=== PATIENT | female | born 1955 | race Caucasian/White ===

== ENCOUNTER 2017-04-29 23:53 | Emergency (ER) | payer OTHER ==
[2017-04-30 00:12] VITALS: BP 147/75
== END 2017-04-30 02:32 | disposition left against medical advice (07) ==
LOC: ER 23:53
DX: Z53.21 Procedure and treatment not carried out due to patient leaving prior to being seen by health care provider (principal)

== ENCOUNTER → 2019-06-11 | Outpatient (CLI) | payer OTHER ==
--- NOTE | 2019-06-11 11:56 | RADIOLOGY REPORT (SQ) ---
EXAM DESCRIPTION: CHEST PA/LATERAL COMPLETED DATE/TIME: 06/11/2019 11:20 am REASON FOR STUDY: COUGH COMPARISON: None. EXAM PARAMETERS: NUMBER OF VIEWS: two views TECHNIQUE: Digital Frontal and Lateral radiographic views of the chest acquired. RADIATION DOSE: NA LIMITATIONS: none FINDINGS: LUNGS AND PLEURA: No consolidation or effusions. Focal opacity at the left cardiophrenic angle is consistent with confluence of shadows. No effusions. No pneumothorax. MEDIASTINUM AND HILAR STRUCTURES: No masses or contour abnormalities. HEART AND VASCULAR STRUCTURES: Heart normal size. No evidence for failure. BONES: No acute findings. HARDWARE: None in the chest. OTHER: No other significant finding. IMPRESSION: NO SIGNIFICANT RADIOGRAPHIC FINDING IN THE CHEST. TECHNICAL DOCUMENTATION: JOB ID: [id number] [employer]- All Rights Reserved Reading location - IP/workstation name: [email or web address]
== END ==
LOC: OD 11:07
PROVIDERS: ATTEND Physician Assistant
DX: R05 Cough (principal)
CPT/HCPCS: 71046

== ENCOUNTER → 2019-07-12 | Outpatient (CLI) | payer OTHER ==
--- NOTE | 2019-07-12 14:12 | RADIOLOGY REPORT (SQ) ---
EXAM DESCRIPTION: CT SOFT TISSUE NECK WITH COMPLETED DATE/TIME: 07/12/2019 1:29 pm REASON FOR STUDY: R22.0 LOCALIZED SWELLING, MASS AND LUMP, HEAD R22.0 LOCALIZED SWELLING, MASS AND LUMP, HEAD COMPARISON: None. TECHNIQUE: Post IV contrasted scanning from skull base through lung apices with review of bone, soft tissue and lung windows. Reconstructed coronal and sagittal MPR images reviewed. All images stored on PACS. All CT scanners at this facility use dose modulation, iterative reconstruction, and/or weight based d osing when appropriate to reduce radiation dose to as low as reasonably achievable (ALARA). [facility]: Dose Right [facility]: CareDose [facility]: Dose Right [facility]: Teradose 4D [facility]: Mo-DV CONTRAST TYPE AND DOSE: contrast/concentration: Isovue 350.00 mg/ml; Total Contrast Delivered: 75.0 ml; Total Saline Delivered: 55.0 ml RENAL FUNCTION: Creatinine 0.7 RADIATION DOSE: . LIMITATIONS: Lack of marker. FINDINGS: SKULL BASE: Intact. MAJOR SALIVARY GLANDS: No solid or cystic masses. No inflammatory changes. LYMPHADENOPATHY: There are small submandibular and submental and cervical lymph nodes bilaterally. MUCOSAL MASSES OR ASYMMETRY: No mucosal masses or asymmetry. LARYNX/CORDS: No abnormal findings. VASCULAR STRUCTURES: The major vessels are patent. LUNG APICES: Clear. BONES: Cervical degenerative disc disease and spondylosis. THYROID: Normal size. No masses. PARANASAL SINUSES: Clear. OTHER: No other significant finding. IMPRESSION: There is mild adenopathy bilaterally as described. Degenerative disc disease and spondy losis are present. No abnormal soft tissue mass is seen. TECHNICAL DOCUMENTATION: JOB ID: [id number] Quality ID # 436: Final reports with documentation of one or more dose reduction techniques (e.g., Au tomated exposure control, adjustment of the mA and/or kV according to patient size, use of iterative reconstruction technique) 2010 [facility]- All Rights Reserved Reading location - IP/workstation name: [email or web address]
== END ==
LOC: RAD 12:48
PROVIDERS: ATTEND Physician Assistant
DX: R22.0 Localized swelling, mass and lump, head (principal)
CPT/HCPCS: 70491; 82565

== ENCOUNTER → 2019-12-01 | Outpatient (CLI) | payer OTHER ==
--- NOTE | 2019-12-01 08:53 | RADIOLOGY REPORT (SQ) ---
EXAM DESCRIPTION: CT LUNG CANCER SCREENING COMPLETED DATE/TIME: 12/01/2019 8:26 am REASON FOR STUDY: Z13.6 ENCOUNTER FOR SCREENING FOR CARDIOVASCULAR DISORDERS Z12.31 ENCNTR SCREEN M AMMOGRAM FOR MALIGNANT NEOPLASM OF ANN Z53.20 PROC/TRTMT NOT CRD OUT BEC PT DECISION FOR UNSP REASO Z87.891 PERSONAL HISTORY OF NICOTINE DEPENDENCE Has the patient had a Chest CT scan within the past year? N Was the patient offered tobacco cessation counseling? Y Was the patient engaged in shared decision making for this test? Y Does the patient have signs or symptoms of Lung Cancer? N Is the patient a smoker? Y How many pack years? 50 How many years since quitting smoking? 0 Patients age: 64 COMPARISON: None. TECHNIQUE: Low Dose CT scan performed of the chest without intravenous contrast for purposes of scre ening for lung cancer. Images reviewed with lung, soft tissue and bone windows. Reconstructed coron al and sagittal MPR images reviewed. All images stored on PACS. All CT scanners at this facility use dose modulation, iterative reconstruction, and/or weight based d osing when appropriate to reduce radiation dose to as low as reasonably achievable (ALARA). [facility]: Dose Right [facility]: CareDose [facility]: Dose Right [facility]: Teradose 4D [facility]: [employer] RADIATION DOSE: CT Rad equipment meets quality standard of care and radiation dose reduction techniq ues were employed. CTDIvol: 2.1 mGy. DLP: 87 mGy-cm. mGy. . LIMITATIONS: No technical limitations. FINDINGS: LUNG NODULES: 3.6 mm nodule in the right upper lobe (axial series 2, image 123). 4.7 mm nodule in the right lower lobe (axial series 2, image 261). 5.1 mm nodule in the right lower lobe (a xial series 2, image 272). REMAINING LUNGS AND PLEURA: No pleural effusions or calcifications. No pneumothorax. Parenchyma l scarring, primarily in the lung apices. HILAR AND MEDIASTINAL STRUCTURES: No identified masses. No abnormal nodes. HEART AND VASCULAR STRUCTURES: No aortic aneurysm. No pericardial effusion. No cardiac devices. CORONARY ARTERY CALCIFICATIONS: Mild to moderate calcifications. UPPER ABDOMEN, THYROID, BONES, OTHER SOFT TISSUES: No significant findings. IMPRESSION: BENIGN FINDINGS IN THE LUNGS. NO OTHER CLINICALLY SIGNIFICANT/POTENTIALLY CLINICALLY SIGNIFICANT FINDINGS LUNGRADS: LUNGRADS: 2 BENIGN APPEARANCE OR BEHAVIOR. NODULES WITH A VERY LOW LIKELIHOOD OF BECOMING A CLINICALLY ACTIVE CANCER DUE TO SIZE OR LACK OF GROWTH. MODIFIER: NONE. RECOMMENDATION: Continue annual screening with LDCT in 12 months. COMMENT: CRITERIA: Solid nodule(s): < 6 mm; new < 4 mm. Part solid nodule(s): < 6 mm total diameter on baseline screening. Non solid nodule(s) (GGN): < 20 mm OR ? 20 and unchanged or slowly growing. Category 3 or 4 nodules unchanged for ? 3 months. TECHNICAL DOCUMENTATION: JOB ID: [id number] Quality ID # 436: Final reports with documentation of one or more dose reduction techniques (e.g., Au tomated exposure control, adjustment of the mA and/or kV according to patient size, use of iterative reconstruction technique) 2010 [facility] Reading location - IP/workstation name: [email or web address]
--- NOTE | 2019-12-01 10:12 | WOMENS IMAGING REPORT ---
EXAM DESCRIPTION: 3D SCREENING MAMMO BILAT COMPLETED DATE/TIME: 12/01/2019 9:32 am REASON FOR STUDY: Z12.31 SCREENING MAMMO Z12.31 ENCNTR SCREEN MAMMOGRAM FOR MALIGNANT NEOPLASM OF B RE Z53.20 PROC/TRTMT NOT CRD OUT BEC PT DECISION FOR UNSP REASO Z87.891 PERSONAL HISTORY OF NICOTIN E DEPENDENCE COMPARISON: Multiple since 2010 EXAM PARAMETERS: Standard craniocaudal and mediolateral oblique views of each breast recorded using digital acquisition and breast tomosynthesis. Read with the assistance of CAD. .[facility] - [employer]er Version 9.2 LIMITATIONS: None. FINDINGS: RIGHT BREAST MASSES: No suspicious masses. CALCIFICATIONS: There are new microcalcifications in linear branching distribution deep central left breast for which additional compression magnification mammograms are recommended for followup. ARCHITECTURAL DISTORTION: None. ASYMMETRY: None noted. OTHER: No other significant findings. LEFT BREAST MASSES: No suspicious masses. CALCIFICATIONS: No new or suspicious calcifications. ARCHITECTURAL DISTORTION: None. ASYMMETRY: None noted. OTHER: No other significant findings. IMPRESSION: No mammographic evidence for malignancy right breast Microcalcifications the deep central left breast for which diagnostic compression magnification mammo grams are recommended 0 Incomplete: Needs Additional Imaging Evaluation and/or prior Mammograms for Comparison. BREAST DENSITY: b. There are scattered areas of fibroglandular density. BIRAD: ASSESSMENT: 0 Incomplete: Needs Additional Imaging Evaluation and/or prior Mammograms for C omparison. RECOMMENDATION: RECOMMENDED FOLLOW-UP: Diagnostic left breast mammograms for calcifications The patient will be contacted for additional imaging. COMMENT: The patient has been notified of the results by letter per MQSA requirements. Additional no tification policies are in place for contacting patient with suspicious or incomplete findings. Quality ID #225: The [employer] recommends an annual screening mammogram for women aged 40 years or over. This facility utilizes a reminder system to ensure that all patients receive reminder letters, and/or direct phone calls for appointments. This includes reminders for routine scr eening mammograms, diagnostic mammograms, or other Breast Imaging Interventions when appropriate. Th is patient will be placed in the appropriate reminder system. TECHNICAL DOCUMENTATION: FINDING NUMBER: (1) ASSESSMENT: (1) JOB ID: [id number] [employer]- All Rights Reserved Reading location - IP/workstation name: [email or web address]
--- NOTE | 2019-12-01 12:46 | RADIOLOGY REPORT (SQ) ---
EXAM DESCRIPTION: U/S ABD AORTIC SCREENING COMPLETED DATE/TIME: 12/01/2019 8:52 am REASON FOR STUDY: Z13.6 ENCOUNTER FOR SCREENING FOR CARDIOVASCULAR DISORDERS Z12.31 ENCNTR SCREEN M AMMOGRAM FOR MALIGNANT NEOPLASM OF ANN Z53.20 PROC/TRTMT NOT CRD OUT BEC PT DECISION FOR UNSP REASO Z87.891 PERSONAL HISTORY OF NICOTINE DEPENDENCE COMPARISON: CT chest 12/01/2019 TECHNIQUE: Static and dynamic grayscale images acquired of the aorta and stored on PACs. Selected co chinmay Doppler and spectral images recorded. LIMITATIONS: None. FINDINGS: AORTIC CALIBER MAXIMAL PROXIMAL: 2.3 cm. MID: 1.7 cm. DISTAL: 1.4 cm. ILIAC DIAMETER RIGHT: 1.0 cm. LEFT: 1.1 cm. OTHER: No other significant finding. IMPRESSION: NO ABDOMINAL AORTIC ANEURYSM. COMMENT: Aortic aneurysm imaging followup: Negative, no followup necessary. *Based upon the Society for Vascular Surgery Guidelines: J Vasc Surg. 2009 Oct;50(4 Suppl):S2-49 *For aortas of maximum diameter of 2.6-2.9 cm meeting the criteria for AAA (?1.5 x proximal normal se gment) TECHNICAL DOCUMENTATION: JOB ID: [id number] [employer]- All Rights Reserved Reading location - IP/workstation name: [email or web address]
== END ==
LOC: WI 08:00
PROVIDERS: ATTEND Physician Assistant
DX: Z12.31 Encounter for screening mammogram for malignant neoplasm of breast (principal); Z13.6 Encounter for screening for cardiovascular disorders; R91.8 Other nonspecific abnormal finding of lung field
CPT/HCPCS: 76706; 77063; 77067; G0297

== ENCOUNTER → 2019-12-07 | Outpatient (CLI) | payer OTHER ==
--- NOTE | 2019-12-07 12:16 | WOMENS IMAGING REPORT ---
EXAM DESCRIPTION: LEFT DIAGNOSTIC MAMMO W/CAD COMPLETED DATE/TIME: 12/07/2019 8:45 am REASON FOR STUDY: R92.8 OTHER ABNORMAL AND INCONCLUSIVE FINDINGS ON DIAGNOSTIC IMAGING OF ANN R92.8 OTH ABN AND INCONCLUSIVE FINDINGS ON DX IMAGING OF ANN COMPARISON: 12/01/2019 and 07/03/2016. EXAM PARAMETERS: True lateral and magnification lateral and CC images acquired. LIMITATIONS: None. FINDINGS: BREAST LATERALITY: left MASSES: No suspicious masses. CALCIFICATIONS: Extensive calcifications in the inferolateral breast. Large area of involvement with irregular linear and branching pleomorphic calcifications. ARCHITECTURAL DISTORTION: None. ASYMMETRY: None noted. OTHER: No other significant findings. IMPRESSION: Extensive suspicious calcifications in the inferior lateral breast concerning for a larg e area of possible DCIS. These have developed since 2016. Biopsy should be considered. Due to the extensive involvement, biopsies of two or three separate areas of suspicious calcifications may be ap propriate. BREAST DENSITY: b. There are scattered areas of fibroglandular density. BIRAD: ASSESSMENT: 4 Suspicious. Biopsy should be performed in the absence of clinical contra-indic ation. RECOMMENDATION: RECOMMENDED FOLLOW UP: Birads 4: Biopsy should be performed in the absence of clinic al contraindication. SPECIFIC INTERVENTION/IMAGING/CONSULTATION RECOMMENDED:The suspicious finding(s) amenable to stereo-t actic-guided vacuum assisted core biopsy. COMMUNICATION:The imaging findings were not discussed with the patient. Her referring provider has be en notified of the findings. COMMENT: The patient has been notified of the results by letter per SA requirements. Additional no tification policies are in place for contacting patient with suspicious or incomplete findings. Quality ID #225: The [employer] recommends an annual screening mammogram for women aged 40 years or over. This facility utilizes a reminder system to ensure that all patients receive reminder letters, and/or direct phone calls for appointments. This includes reminders for routine scr eening mammograms, diagnostic mammograms, or other Breast Imaging Interventions when appropriate. Th is patient will be placed in the appropriate reminder system. TECHNICAL DOCUMENTATION: FINDING NUMBER: (1) ASSESSMENT: (1) JOB ID: [id number] [employer]- All Rights Reserved Reading location - IP/workstation name: [email or web address]
== END ==
LOC: WI 07:55
PROVIDERS: ATTEND Physician Assistant
DX: R92.0 Mammographic microcalcification found on diagnostic imaging of breast (principal)
CPT/HCPCS: 77065

== ENCOUNTER → 2019-12-23 | Day surgery (SDC) | payer OTHER ==
[~2019-12-23] MED LIST: LIDOCAINE 0.5%/EPINEPHRINE INJ 50 ML VIAL ONE
--- NOTE | 2019-12-23 11:27 | Discharge Summary ---
Discharge Summary (SDC) - Discharge Final Diagnosis: Broad range of microcalcifications 4 o'clock position left breast Date of Surgery: 12/23/19 Discharge Date: 12/23/19 Condition: Good Treatment or Instructions: Wear supportive bra; take Tylenol Motrin PRN pain; preoperative medications, diet, activity; follow-up with Dr. Escudero at [place] [facility] in 1 to 2 weeks Referrals: ARMANI ESCUDERO MD [Primary Care Provider] - Discharge Diet: As Tolerated Discharge Activity: Activity As Tolerated Home Care Assistance: None Needed Report the Following to Your Physician Immediately: Shortness of Breath, Increase in Pain, Fever over 101 Degrees
--- NOTE | 2019-12-23 11:34 | Operative Report ---
Operative Report DATE OF SURGERY: 12/23/19 PREOPERATIVE DIAGNOSIS: Broad cluster microcalcifications outer lower quadrant left breast POSTOPERATIVE DIAGNOSIS: Same OPERATION: 1. Stereotactically directed myomotomy and core biopsies left breast. 2. Interpretation of a specimen radiograph. 3. interpretation of intraoperative mammography SURGEON: ARMANI FOSTER ANESTHESIA: Local TISSUE REMOVED OR ALTERED: Multiple cores left breast COMPLICATIONS: None ESTIMATED BLOOD LOSS: scant INTRAOPERATIVE FINDINGS: See below PROCEDURE: The patient was seen in the radiology procedure room for the stereotactic breast biopsy. She placed on the stereotactic table left breast placed into compress ion, and the target microcalcifications localized. There was actually a large range of microcalcifications so was selected at the 4 o'clock position of the left breast. The surface of the left breast was prepped with Betadine, Starr x1% plain lidocaine. A kavita was made the skin with 11 blade, mammotome advanced to the appropriate depth, and pre-and post fire films showed good alignment between the microcalcifications and the mammotome. We now completed core biopsy times 10 from the left breast in a circumferential fashion. Specimens were retrieved and placed on a Humphrey dish and imaged with the specimen radiograph machine. This demonstrated retention of the target microcalcifications in the cores removed. We now return to the left breast and deployed a clip marker into the biopsy ca vity. Post clip deployment films showed retention of the clip marker in the left breast. Patient tolerated procedure well. She recovered uneventfully and was discharged home. Discharge instructions provided.
--- NOTE | 2019-12-27 13:22 | WOMENS IMAGING REPORT ---
EXAM DESCRIPTION: STEREO BREAST BX; LEFT DIG DX MAMMO NO CHG COMPLETED DATE/TIME: 12/27/2019 11:33 am; 12/23/2019 1:03 pm REASON FOR STUDY: R92.0 MAMMOGRAPHIC MICROCALCIFICATION FOUND ON DX IMAGING OF BRST; POST LEFT STERE O R92.0 MAMMOGRAPHIC MICROCALCIFICATION FOUND ON DX IMAGING OF COMPARISON: 11/21/2019 LIMITATIONS: None. PROCEDURE: Vacuum-assisted stereotactic-guided biopsy of the lesion in the left breast targeted and performed by Dr. Escudero, the operating surgeon. Procedure and post-procedure imaging interpreted b y a radiologist. Using stereotactic guidance, a vacuum-assisted core biopsy of the targeted lesion was performed. A p ellet clip was deployed at the biopsy site. Post procedure image reveals the clip at the biopsy site . TECHNIQUE: Images from the stereotactic unit acquired during the procedure. Specimen radiography performed. No. Post- procedure image acquired post-clip placement. Yes. Post procedure 2 view mammograms performed in the mammography suite for clip placement. Yes. FINDINGS: SPECIMEN RADIOGRAPH:Not available. POST PROCEDURE MAMMOGRAMS FOR MARKER PLACEMENT: Yes. POST PROCEDURE MAMMOGRAM: Clip is in expected location. Diffuse central left breast hematoma. PATHOLOGY: Fibrocystic changes with usual ductal hyperplasia and adenosis. Fibroadenoma like changes . Calcifications are seen in association with usual ductal hyperplasia. No evidence of malignancy. CONCORDANT: Yes. The operating surgeon was notified of the findings. IMPRESSION: SUCCESSFUL STEREOTACTIC-GUIDED BIOPSY OF LESION IN THE LEFT BREAST. BIOPSY RESULTS ARE CONCORDANT WITH IMAGING FINDINGS. FOLLOW-UP: RETURN TO SCREENING, November 2020 Benign biopsy for calcifications (BI-RADS 2). TECHNICAL DOCUMENTATION: JOB ID: [id number] 2010 [employer]- All Rights Reserved Reading location - IP/workstation name: [email or web address]
== END ==
LOC: RAD 09:46
PROVIDERS: ATTEND Surgery
DX: R92.0 Mammographic microcalcification found on diagnostic imaging of breast (principal); N60.12 Diffuse cystic mastopathy of left breast; N62 Hypertrophy of breast; N60.22 Fibroadenosis of left breast; E78.00 Pure hypercholesterolemia, unspecified; I10 Essential (primary) hypertension; F41.9 Anxiety disorder, unspecified; M06.9 Rheumatoid arthritis, unspecified; F17.210 Nicotine dependence, cigarettes, uncomplicated; Z79.899 Other long term (current) drug therapy; Z79.82 Long term (current) use of aspirin
CPT/HCPCS: 88305 ×2; 88342; 19081; J3490

== ENCOUNTER → 2020-06-26 | Outpatient (CLI) | payer OTHER ==
--- NOTE | 2020-06-26 09:20 | WOMENS IMAGING REPORT ---
EXAM DESCRIPTION: 3D DX MAMMO LEFT UNILAT IMAGES COMPLETED DATE/TIME: 06/26/2020 9:03 am REASON FOR STUDY: R92.8 OTHER ABNORMAL AND INCONCLUSIVE FINDINGS ON DIAGNOSTIC IMAGING OF ANN R92.8 OTH ABN AND INCONCLUSIVE FINDINGS ON DX IMAGING OF ANN COMPARISON: 12/01/2019 and multiple priors EXAM PARAMETERS: Standard craniocaudal and mediolateral oblique images of the breast recorded using digital acquisition and breast tomosynthesis. Magnification and true lateral. Read with the assistance of CAD. .[facility] - [employer] Version 9.2 LIMITATIONS: None. FINDINGS: BREAST LATERALITY: left MASSES: No suspicious masses. CALCIFICATIONS: Further increased branching calcifications in the central inferior breast broadly acr oss 5 to 7 o'clock approximately 5 cm the nipple. ARCHITECTURAL DISTORTION: None. ASYMMETRY: None noted. OTHER: No other significant findings. IMPRESSION: Increasing suspicious calcifications in the left breast BREAST DENSITY: b. There are scattered areas of fibroglandular density. BIRAD: ASSESSMENT: 4 Suspicious. Biopsy should be performed in the absence of clinical contra-indic ation. RECOMMENDATION: RECOMMENDED FOLLOW UP: Birads 4: Biopsy should be performed in the absence of clinic al contraindication. SPECIFIC INTERVENTION/IMAGING/CONSULTATION RECOMMENDED:The suspicious finding(s) amenable to stereo-t actic-guided vacuum assisted core biopsy. COMMUNICATION:The imaging findings were not discussed with the patient. Her referring provider has be en notified of the findings. COMMENT: The patient has been notified of the results by letter per SA requirements. Additional no tification policies are in place for contacting patient with suspicious or incomplete findings. Quality ID #225: The [employer] recommends an annual screening mammogram for women aged 40 years or over. This facility utilizes a reminder system to ensure that all patients receive reminder letters, and/or direct phone calls for appointments. This includes reminders for routine scr eening mammograms, diagnostic mammograms, or other Breast Imaging Interventions when appropriate. Th is patient will be placed in the appropriate reminder system. TECHNICAL DOCUMENTATION: FINDING NUMBER: (1) ASSESSMENT: (1) JOB ID: [id number] 2010 [employer]- All Rights Reserved Reading location - IP/workstation name: [email or web address]
== END ==
LOC: WI 08:16
PROVIDERS: ATTEND Surgery
DX: R92.8 Other abnormal and inconclusive findings on diagnostic imaging of breast (principal)
CPT/HCPCS: 77065

== ENCOUNTER → 2020-07-11 | Day surgery (SDC) | payer OTHER ==
[~2020-07-11] MED LIST changes: -LIDOCAINE 0.5%/EPINEPHRINE INJ 50 ML VIAL ONE; +LIDOCAINE 1%/EPINEPHRINE INJ 20 ML VIAL ONE
--- NOTE | 2020-07-11 08:26 | Discharge Summary ---
Discharge Summary (SDC) - Discharge Final Diagnosis: 1. Persisting, extensive microcalcifications left breast 2. Status post stereotactic biopsy left breast Date of Surgery: 07/11/20 Discharge Date: 07/11/20 Condition: Good Treatment or Instructions: Supportive bra; patient take Tylenol or Motrin as needed pain: Return [place] [facility] in 1 to 2 weeks for follow-up; we will call patient with pathology results Referrals: DEIDRE MURILLO MD [Primary Care Provider] - Discharge Diet: As Tolerated Discharge Activity: Activity As Tolerated Home Care Assistance: None Needed Report the Following to Your Physician Immediately: Shortness of Breath, Increase in Pain, Fever over 101 Degrees
--- NOTE | 2020-07-11 08:34 | Operative Report ---
Operative Report DATE OF SURGERY: 07/11/20 PREOPERATIVE DIAGNOSIS: 1. Expanding microcalcifications left breast. 2. Sta tus post recent stereotactic biopsy left breast with ductal hyperplasia POSTOPERATIVE DIAGNOSIS: Same OPERATION: 1. Repeat stereotactically directed biopsy left breast in more lateral anterior position. 2. Placement of cylindrical clip marker. 3. Interpretation of intraoperative mammograms and specimen radiograph SURGEON: ARMANI FOSTER ANESTHESIA: Local TISSUE REMOVED OR ALTERED: Multiple cores lateral aspect left breast COMPLICATIONS: None ESTIMATED BLOOD LOSS: Scant INTRAOPERATIVE FINDINGS: See below PROCEDURE: The patient was taken from the radiology waiting area to the stereotactic procedure room where she was placed in the prone position, left breast lowered into the table hole. The patient had previously undergone stereotactically directed biopsy and clip marker placement in the deeper lateral aspect of the left breast, with the use of a dumbbell clip marker. There remains a vast array of scattered microcalcifications in various configurations from the 5 to 7 o'clock position. We targeted the cluster of microcalcifications in the more lateral and anterior aspect of the left breast, lateral to the previously placed clip marker. The left breast was placed to compression, and stereotactic views obtained of the target site. The surface of the left breast was exposed, and prepped with Betadine. We were now using a caudal cranial approach. Skin was anesthetized 1% plain lidocaine with a 25-gauge needle. Vinny made the skin with 11 blade, whole opened with a hemostat, and mammotome advanced to the appropriate depth. Pre-and post fire films show good alignment between the mammotome and the microcalcification cluster. We deployed the mammotome, repeated mammograms then proceeded to biopsy the target microcalcifications in a circumferential fashion. Approximately 9 cores were obtained. Specimens were placed in a Humphrey dish, and imaged with the portable specimen radiograph machine. This demonstrated retention of the target microcalcifications. There is no bleeding. A clip marker of the cylindrical configuration was deployed at the new biopsy site. Post deployment images showed retention of the second clip in the lateral position. The mammotome device was removed from the breast, compression applied. Patient tolerated procedure well. Discharge directions provided
== END ==
LOC: RAD 07:26
PROVIDERS: ATTEND Surgery
DX: R92.1 Mammographic calcification found on diagnostic imaging of breast (principal); N60.22 Fibroadenosis of left breast; N60.12 Diffuse cystic mastopathy of left breast
CPT/HCPCS: 88342 ×2; 88341 ×2; 88305 ×2; 19081; 77065; J3490